=== PATIENT | female | born 1965 | race Two or more races ===

== ENCOUNTER 2024-07-10 08:38 | Day surgery (SDC) | payer OTHER ==
[2024-07-02 10:46] LABS: HEMOGLOBIN 13.2 g/dL (12.0-15.00); MEAN CELL VOLUME 85.8 fL (80.00-100.00); MEAN CORPUSCULAR HGB CONC 33.7 g/dl (32.0-36.0); PLATELET COUNT 305 K/uL (150-450); RED BLOOD COUNT 4.55 M/uL (4.00-6.00); RED CELL DISTRIBUTION WIDTH 12.9 % (11.5-14.5)
[2024-07-02 11:05] LABS: INR < 0.93; PARTIAL THROMBOPLASTIN TIME 26.1 SECONDS (22.0-34.0); PROTHROMBIN TIME 10.2 SECONDS (9.0-11.5)
[2024-07-02 11:15] LABS: URINE APPEARANCE Clear; URINE BILIRRUBIN Negative (NEGATIVE); URINE BLOOD Negative; URINE COLOR Yellow; URINE GLUCOSE Negative (NEGATIVE); URINE KETONE Negative (NEGATIVE); URINE LEUKOCYTE Small; URINE NITRATE Negative; URINE PROTEIN Negative (NEGATIVE); URINE UROBILINOGEN 0.2 E.U./dl
[2024-07-02 11:19] LABS: URINE BACTERIA 53.8 uL (0.0-1933); URINE EPITHELIAL CELLS 25.6 uL (0.0-38.8); URINE RBC 4.5 uL (0.0-20.8); URINE WBC 59.6 uL (0.0-23.2)
[2024-07-02 11:31] LABS: URINE CAST 0.29 uL (0.0-1.40)
[2024-07-02 11:50] LABS: ALBUMIN 3.7 gm/dL (3.4-5.0); BILIRUBIN TOTAL 0.3 mg/dL (0.3-1.2); CALCIUM 9.6 mg/dL (8.5-10.1); CREATININE SERUM 0.85 mg/dL (0.55-1.02); GFR 68.45; GLOBULINA 3.7 G/DL (2.4-3.5); POTASSIUM 3.7 mEq/L (3.5-5.1); TOTAL PROTEIN 7.4 gm/dL (6.4-8.2)
[2024-07-02 12:28] LABS: RH POSITIVE
[2024-07-02 12:37] VITALS: BP 140/73
[~2024-07-10] VITALS: Ht 157.5 cm; Wt 86.2 kg
[~2024-07-10 08:38] MED LIST: ACID REDUCER20 M1 PO; SINGULAIR10 MG PO; SYNTHROID50 MCG PO; ZANAFLEX4 M1 PO; ZESTORETIC 20-1 EACH PO
[2024-07-10] MEDS ORDERED: CEFTRIAXONE SODIUM 2,000 MG VIAL ONE (10:07)
[2024-07-10] MEDS ORDERED: BUPIVACAINE HCL/MPF 0.5% 30ML VIAL ONE (10:07)
[2024-07-10] MEDS ORDERED: LIDOCAINE HCL 1%/EPINEPHRINE 20ML VIAL IJ ONE (10:08)
[2024-07-10] MEDS ORDERED: METRONIDAZOLE/SODIUM CHLORIDE 500 MG/100 ML PIGGYBACK IV ONE (10:08)
[2024-07-10] MEDS ORDERED: SUGAMMADEX SODIUM 200 MG/2 ML VIAL IV ONE (12:28)
== END 2024-07-10 15:20 | disposition home or self-care (01) ==
LOC: CIR.AMB 08:38 → SURH 08:38 → O/R 08:38 → EDSTATUS 09:00 → SURH 09:00 → CIR.AMB 15:20 → O/R 15:20
PROVIDERS: ATTEND Colon & Rectal Surgery
DX: K57.20 Diverticulitis of large intestine with perforation and abscess without bleeding (principal); R10.32 Left lower quadrant pain; K56.699 Other intestinal obstruction unspecified as to partial versus complete obstruction; N82.3 Fistula of vagina to large intestine; I10 Essential (primary) hypertension; Z91.013 Allergy to seafood